=== PATIENT | female | born 1990 | race Caucasian/White ===

== ENCOUNTER 2018-02-27 15:27 | Emergency (ER) | payer SELFPAY ==
[~2018-02-27] VITALS: Ht 165.1 cm; Wt 94.4 kg
[2018-02-27 17:30] VITALS: BP 153/83
[2018-02-27 20:06] LABS: BASOPHILS # (AUTO) 0.1 K/uL (0.00-0.22); BASOPHILS % (AUTO) 0.6 % (0.0-2.0); EOSINOPHILS % (AUTO) 0.1 % (0.0-4.0); HEMATOCRIT 45.4 % (36-48); HEMOGLOBIN 14.8 g/dL (12.0-16.0); LYMPHOCYTES # (AUTO) 3.5 K/uL (2.5-16.5); LYMPHOCYTES % (AUTO) 24.6 % (20.5-51.1); MEAN CORPUSCULAR HEMOGLOBIN 28 pg (27-31); MEAN CORPUSCULAR HGB CONC 33 g/dL (33-37); MEAN CORPUSCULAR VOLUME 85.9 fL (80-94); MONOCYTES # (AUTO) 0.5 K/uL (0.8-1.0); MONOCYTES % (AUTO) 3.7 % (1.7-9.3); NEUTROPHILS # (AUTO) 10.1 K/uL (1.8-7.7); PLATELET COUNT (AUTO) 351 K/uL (140-450); RED BLOOD CELL COUNT(AUTO) 5.29 MIL/uL (4.20-5.40); RED CELL DISTRIBUTION WIDTH 13.2 % (11.6-13.7); WHITE BLOOD COUNT (AUTO) 14.3 K/uL (4.8-10.8)
[2018-02-27 20:23] LABS: ALBUMIN 4.4 g/dL (3.4-5.0); ANION GAP 13.7 (8-16); CARBON DIOXIDE 25.9 mmol/L (21-32); CREATININE 0.7 mg/dL (0.6-1.3); MAGNESIUM 2.1 mg/dL (1.8-2.4); POTASSIUM 3.6 mmol/L (3.5-5.1); TOTAL BILIRUBIN 0.5 mg/dL (0.0-1.0)
[2018-02-27 21:55] VITALS: BP 148/80
== END 2018-02-27 21:55 | disposition home or self-care (01) ==
LOC: MED 15:27
DX: F41.9 Anxiety disorder, unspecified (principal)
CPT/HCPCS: 36415; 71046; 80053; 83735; 84484; 85025; 93005; 99284

== ENCOUNTER 2020-07-16 18:44 | Emergency (ER) | payer OTHER ==
[~2020-07-16] VITALS: Ht 160 cm; Wt 111.6 kg
--- NOTE | 2020-07-16 18:53 | NUR ---
Patient ambulated to bed 4. RN evaluating the patient at bedside.
[2020-07-16 18:54] VITALS: BP 158/71
--- NOTE | 2020-07-16 19:15 | NUR ---
RECEIVED REPORT FROM HALEY GIL, FOR CONTINUITY OF CARE
--- NOTE | 2020-07-16 19:22 | NUR ---
29 Y/O FEMALE CAME TO THE ED C/O CHEST PAIN. PT IS 24 WEEKS . PT STATES THAT "I AM HAVING SHARP INTERMITTENT CHEST PAIN WITH PALPITATIONS OF 8/10 AND NONRADIATING." PT IS CONSISTENT WITH CARE, TAKING PRENATL VITAMINS. DENIES N/V/D; SKIN IS PINK/WARM/DRY; AAOX4 WITH EVEN AND STEADY GAIT; LUNGS CLEAR BL; HR EVEN AND REGULAR; PT DENIES ANY FEVER, CP, SOB, OR COUGH AT THIS TIME; VSS; PATIENT POSITIONED FOR COMFORT; HOB ELEVATED; BEDRAILS UP X2; BED DOWN. ER MD MADE AWARE OF PT STATUS. ALLERGIES: PENICILLIN PMH: DENIES G-1 T-0 P-0 A-0 L-0
[2020-07-16 19:47] VITALS: BP 158/71
--- NOTE | 2020-07-16 19:47 | NUR ---
Patient discharged with v/s stable. Written and verbal after care instructions given and explained. Patient alert, oriented and verbalized understanding of instructions. Ambulatory with to car. All questions addressed prior to discharge. ID band removed. Patient advised to follow up with PMD. Patient educated on indication of medication including possible reaction and side effects. Opportunity to ask questions provided and answered.
== END 2020-07-16 19:45 | disposition home or self-care (01) ==
LOC: MED 18:44
DX: O26.892 Other specified pregnancy related conditions, second trimester (principal); R07.89 Other chest pain; Z3A.23 23 weeks gestation of pregnancy
CPT/HCPCS: 81002; 81025; 93005; 99283

== ENCOUNTER 2020-08-25 23:40 | Observation (INO) | payer OTHER ==
[~2020-08-25] VITALS: Ht 160 cm; Wt 108.9 kg
[2020-08-26] MEDS ORDERED: ACETAMINOPHEN 325 MG TAB PO PRN (00:30)
[2020-08-26] MEDS ORDERED: MORPHINE SULFATE 4 MG/ML SYR IVP PRN (00:30)
[2020-08-26] MEDS: LACTATED RINGERS 1,000 ML IV SCH ×2 (00:41→01:46)
[2020-08-26 01:13] VITALS: BP 134/79
[2020-08-26] MEDS ORDERED: FERR325E14 PO (01:17)
[2020-08-26] MEDS ORDERED: PNV91TAB8 PO (01:17)
[2020-08-26] MEDS ORDERED: ONDANSETRON 4 MG/2 ML VIAL ONE (01:22)
[2020-08-26] MEDS: ONDANSETRON 4 MG/2 ML VIAL IVP PRN ×2 (01:25→04:41)
[2020-08-26] MEDS ORDERED: LACTATED RINGERS 1,000 ML IV SCH (01:55)
== END 2020-08-26 04:40 | disposition home or self-care (01) ==
LOC: MLD 23:40
PROVIDERS: ADMIT Obstetrics & Gynecology; ATTEND Obstetrics & Gynecology
DX: O26.893 Other specified pregnancy related conditions, third trimester (principal); R10.9 Unspecified abdominal pain; R51.9 Headache, unspecified; Z3A.29 29 weeks gestation of pregnancy
CPT/HCPCS: 59025; 81000; 96361; 96374; 96375; 96376; G0378; J2270; J2405

== ENCOUNTER 2022-04-15 10:15 | Emergency (ER) | payer BC, OTHER ==
[~2022-04-15] VITALS: Ht 161.3 cm; Wt 107.5 kg
[~2022-04-15 10:15] MED LIST: FERR325E14 PO; PNV91TAB8 PO
[2022-04-15 10:23] VITALS: BP 146/86
[2022-04-15] MEDS ORDERED: KETOROLAC 15 MG/ML VIAL IM ONE (11:45)
[2022-04-15 12:23] LABS: BASOPHILS # (AUTO) 0.1 K/uL (0.00-0.22); BASOPHILS % (AUTO) 0.5 % (0.0-2.0); EOSINOPHILS # (AUTO) 0.1 K/uL (0-0.4); EOSINOPHILS % (AUTO) 0.3 % (0.0-4.0); HEMATOCRIT 42.6 % (36-48); LYMPHOCYTES % (AUTO) 19.4 % (20.5-51.1); MEAN CORPUSCULAR HEMOGLOBIN 28 pg (27-31); MEAN CORPUSCULAR HGB CONC 33 g/dL (33-37); MONOCYTES # (AUTO) 0.5 K/uL (0.8-1.0); MONOCYTES % (AUTO) 3.2 % (1.7-9.3); NEUTROPHILS # (AUTO) 11.6 K/uL (1.8-7.7); NEUTROPHILS % (AUTO) 76.6 % (42.2-75.2); PLATELET COUNT (AUTO) 356 K/uL (140-450); RED BLOOD CELL COUNT(AUTO) 5.07 MIL/uL (4.20-5.40); RED CELL DISTRIBUTION WIDTH 13.9 % (11.6-13.7); WHITE BLOOD COUNT (AUTO) 15.2 K/uL (4.8-10.8)
[2022-04-15] MEDS ORDERED: IBUP-2213 PO (13:41)
[2022-04-15 14:09] LABS: ANION GAP 18.6 (8-16); ASPARTATE AMINOTRANSFERASE 17 U/L (15-37); CARBON DIOXIDE 22.1 mmol/L (21-32); CHLORIDE 97 mmol/L (98-107); POTASSIUM 3.7 mmol/L (3.5-5.1); SODIUM SERUM 134 mmol/L (136-145); TOTAL BILIRUBIN 0.7 mg/dL (0.0-1.0)
[2022-04-15 14:19] LABS: ALBUMIN 4.6 g/dL (3.4-5.0); CREATININE 0.7 mg/dL (0.6-1.3); GFR ARICAN-AMERICAN 126 mL/min (>90)
[2022-04-15 14:27] LABS: GLUCOSE 103 mg/dL (74-106); UREA NITROGEN, BLOOD 8 mg/dL (7-18)
[2022-04-15 15:35] VITALS: BP 129/76
--- NOTE | 2022-04-15 15:35 | NUR ---
Patient discharged with v/s stable. Written and verbal after care instructions given. Patient alert, oriented and verbalized understanding of instructions. Ambulatory with steady gait. All questions addressed prior to discharge. ID band removed. Patient advised to follow up with PMD. Rx of Ibuprofen given. Opportunity to ask questions provided and answered.
== END 2022-04-15 15:35 | disposition home or self-care (01) ==
LOC: MED 10:15
DX: R07.9 Chest pain, unspecified (principal); Z88.0 Allergy status to penicillin; Z79.899 Other long term (current) drug therapy
CPT/HCPCS: 36415; 71045; 80053; 81025; 84484; 85025; 93005; 99285; J1885

== ENCOUNTER 2023-10-13 18:35 | Emergency (ER) | payer BC, MEDICAID ==
[~2023-10-13] VITALS: Ht 160 cm; Wt 111.3 kg
[~2023-10-13 18:35] MED LIST changes: +IBUP-2213 PO
[2023-10-13 18:47] VITALS: BP 157/87; PULSE 78; RESP 18; TEMP 98.6; O2SAT 99
[2023-10-13 19:38] VITALS: O2SAT 99
--- NOTE | 2023-10-13 19:38 | NUR ---
PT C/O NUMBNESS AND MINOR MUSCLE SPASMS IN HANDS LEGS AND FACE X 1 WEEK. STATES MINIMAL TO NO PAIN. WANTS TO BE SEEN TO MAKE SURE THERE ISNT ANY SERIOUS PROBLEMS GOING ON.
[2023-10-13] MEDS ORDERED: ACETAMINOPHEN EXTRA STRENGTH 500 MG TAB PO ONE (19:50)
--- NOTE | 2023-10-13 20:22 | NUR ---
POC GLUCOSE 94MG/DL
[2023-10-13] MEDS ORDERED: METH-1681 PO (20:48)
--- NOTE | 2023-10-13 20:56 | NUR ---
Patient discharged with v/s stable. Written and verbal after care instructions given and explained. Patient verbalized understanding. Ambulatory with steady gait. All questions addressed prior to discharge. Advised to follow up with PMD.
== END 2023-10-13 20:55 | disposition home or self-care (01) ==
LOC: MED 18:35
DX: M62.838 Other muscle spasm (principal); R03.0 Elevated blood-pressure reading, without diagnosis of hypertension; Z79.899 Other long term (current) drug therapy; Z88.0 Allergy status to penicillin
CPT/HCPCS: 99283